=== PATIENT | male | born 1970 | race Caucasian/White ===

== ENCOUNTER → 2019-01-19 | Outpatient (CLI) | payer OTHER ==
[~2019-01-19] MED LIST: ASPIRIN81 M2 PO; DILTIAZEM 24HR240 M1 PO; NOHOMEMEDICATIONS
--- NOTE | 2019-01-19 10:42 | 2DMMODE ---
[place] [address] 2 D/M-MODE ECHOCARDIOGRAM Name: GUILLERMO MAYES Room: [facility]#: [id number] Admission: 01/19/19 Attend Phys: Giovani Ogden, Discharge: Date of : 70 Date of Service: 01/19/19 1042 Report #: [id number] THIS REPORT FOR: //name// APPROVED REPORT Study performed: 01/19/2019 08:02:52 EXAM: Comprehensive 2D, Doppler, and color-flow Echocardiogram Patient Location: Out-Patient BSA: 1.95 HR: 72 bpm BP: 128/90 mmHg Other Information Study Quality: Good Indications Atrial Fibrillation 2D Dimensions IVSd: 12.08 (7-11mm) LVOT Diam: 20.93 (18-24mm) LVDd: 42.82 mm PWd: 10.06 (7-11mm) Ascending Ao: 24.60 (22-36mm) LVDs: 20.81 (25-40mm) Aortic Root: 24.88 mm Volumes Left Atrial Volume (Systole) LA ESV Index: 14.10 mL/m2 Aortic Valve AoV Peak Amado.: 1.05 m/s AO Peak Gr.: 4.42 mmHg LVOT Max P.29 mmHg AO Mean Gr.: 2.27 mmHg LVOT Mean P.43 mmHg LVOT Max V: 1.15 m/s AO V2 VTI: 19.12 cm LVOT Mean V: 0.71 m/s MIRIAM (VTI): 3.97 cm2 LVOT V1 VTI: 22.07 cm Mitral Valve E/A Ratio: 1.16 MV Decel. Time: 184.40 ms MV E Max Amado.: 0.79 m/s MV PHT: 53.48 ms MVA (PHT): 4.11 [place]2 [place] [address] 2 D/M-MODE ECHOCARDIOGRAM Name: GUILLERMO MAYES Room: [facility]#: [id number] Admission: 01/19/19 Attend Phys: Giovani Ogden, Discharge: Date of : 70 Date of Service: 01/19/19 1042 Report #: [id number] TDI E/Lateral E': 6.58 E/Medial E': 8.78 Medial E' Amado.: 0.09 m/s Lateral E' Amado.: 0.12 m/s Pulmonary Valve PV Peak Amado.: 1.13 m/s PV Peak Gr.: 5.11 mmHg Left Ventricle The left ventricle is normal size. There is normal LV segmental wall motion. There is normal left ventricular wall thickness. Left ventricular systolic function is normal. The left ventricular ejection fraction is within the normal range. LVEF is 55-60%. The left ventricular diastolic function is normal. Right Ventricle The right ventricle is normal size. The right ventricular systolic function is normal. Atria The left atrium size is normal. The right atrium size is normal. Aortic Valve The aortic valve is normal in structure. No aortic regurgitation is present. There is no aortic valvular stenosis. Mitral Valve The mitral valve is normal in structure. Trace mitral regurgitation. No evidence of mitral valve stenosis. Tricuspid Valve The tricuspid valve is normal in structure. Trace tricuspid regurgitation. Pulmonic Valve The pulmonary valve is normal in structure. There is no pulmonic valvular regurgitation. Great Vessels The aortic root is normal in size. IVC is normal in size and collapses >50% with inspiration. Pericardium There [place] [address] 2 D/M-MODE ECHOCARDIOGRAM Name: GUILLERMO MAYES Room: [facility]#: [id number] Admission: 01/19/19 Attend Phys: Giovani Ogden, Discharge: Date of : 70 Date of Service: 01/19/19 1042 Report #: [id number] <Conclusion> Left ventricular systolic function is normal. The left ventricular ejection fraction is within the normal range. <ELECTRONICALLY SIGNED> By: Nemesio Welch MD, [facility] 01/19/19 1042 41 41 Nemesio Welch MD, FACC /INF
== END ==
LOC: M.CRD 01-06 08:00
DX: I48.0 Paroxysmal atrial fibrillation (principal)